=== PATIENT | female | born 1955 | race Caucasian/White ===

== ENCOUNTER 2023-08-25 15:29 | Emergency (ER) | payer MEDICARE, BC ==
[2023-08-25] MEDS: Metoprolol Tartrate 5 MG/5 ML SDV IVPUSH ONE ×3 (16:21→17:00)
[2023-08-25 16:51] LABS: ANION GAP 17.1 mmol/L (5-15); BASOPHILS PERCENT AUTO 0.3 % (0.2-1.2); BLOOD UREA NITROGEN,BUN 21 mg/dL (7-18); CARBON DIOXIDE,CO2 27 mmol/L (21-32); CHLORIDE,CL 103 mmol/L (98-107); CREATININE 1.1 mg/dL (0.55-1.02); EOSINOPHILS ABSOLUTE AUTO 0.3 x10^3/uL (0.0-0.5); EOSINOPHILS PERCENT AUTO 3.3 % (0.0-4.0); ESTIMATED GFR 54 mL/min (>=60); GLUCOSE RANDOM 141 mg/dL (70-99); HEMATOCRIT 34.8 % (33.0-47.0); HEMOGLOBIN 11.6 g/dL (12.0-16.0); IMMATURE GRAN ABSOLUTE AUTO 0.03 x10^3/uL (0.00-0.07); LYMPHOCYTES ABSOLUTE AUTO 2.4 x10^3/uL (1.0-4.8); MEAN CORPUSCULAR HEMOGLOBIN 33.4 pg (26.0-32.0); MEAN CORPUSCULAR HGB CONC 33.3 g/dL (32.0-36.0); MEAN CORPUSCULAR VOLUME 100.3 fL (78.0-93.0); MONOCYTES ABSOLUTE AUTO 0.6 x10^3/uL (0.0-0.8); MONOCYTES PERCENT AUTO 7.4 % (2.0-11.0); NEUTROPHILS ABSOLUTE AUTO 4.6 x10^3/uL (1.8-7.7); NEUTROPHILS PERCENT AUTO 58.6 % (50.0-80.0); PLATELET COUNT,PLT 303 x10^3/uL (130-400); POTASSIUM,K 4.1 mmol/L (3.5-5.1); RED BLOOD CELL COUNT 3.47 x10^6/uL (4.00-5.50); SODIUM,NA 143 mmol/L (136-145); WHITE BLOOD CELL COUNT,WBC 7.9 x10^3/uL (4.0-10.0)
[2023-08-25 16:55] LABS: MAGNESIUM 1.5 mg/dL (1.8-2.4)
[2023-08-25] MEDS ORDERED: Metoprolol Tartrate 5 MG/5 ML SDV IVPUSH ONE (17:22)
[2023-08-25] MEDS: Magnesium Oxide 400 MG Tab PO ONE (20:15)
[2023-08-26] MEDS ORDERED: Digoxin 500 MCG/2 ML Amp IVPUSH ONE (19:14)
== END 2023-08-25 21:27 | disposition short-term general hospital (02) ==
LOC: VM.ED 15:29
DX: I48.92 Unspecified atrial flutter (principal); I13.0 Hypertensive heart and chronic kidney disease with heart failure and stage 1 through stage 4 chronic kidney disease, or unspecified chronic kidney disease; N18.30 Chronic kidney disease, stage 3 unspecified; I25.10 Atherosclerotic heart disease of native coronary artery without angina pectoris; E11.22 Type 2 diabetes mellitus with diabetic chronic kidney disease; E66.9 Obesity, unspecified; Z95.0 Presence of cardiac pacemaker; Z79.01 Long term (current) use of anticoagulants; Z79.82 Long term (current) use of aspirin; Z79.899 Other long term (current) drug therapy; Z79.84 Long term (current) use of oral hypoglycemic drugs
CPT/HCPCS: 80048; 83735; 85025; 93005; 96374; 96376; 99285; A9270; J3490